=== PATIENT | female | born 1965 ===

== ENCOUNTER 2024-12-13 15:05 | Outpatient (AMB) | payer BC, SELFPAY ==
--- NOTE | 2024-12-13 15:13 | A.OFFPC_ITS ---
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 Accompanied by: Self / Same As Patient Allergies Sulfa (Sulfonamide Antibiotics) Adverse Reaction (Severe, Verified 12/13/24 15:36) vaginal itch Medication List - Last Reconciled 12/13/24 by Sheridan Rachel MD lisinopril 10 mg PO DAILY Tobacco use date assessed: 12/13/24 Dental Screening Dental Screen Date: 12/13/24 Did you have a dental visit in the last 12 months?: Yes Did you have a dental problem in the last 6 months where you did not have access to dental care?: No Was dental information given to patient?: Patient has dentist HPI HPI Comments History of Present Illness Details The patient is a 59-year-old female presenting with multiple chronic conditions and concerns with specific emphasis on difficulty swallowing and a rash. She has struggled with essential hypertension, untreated for four months due to a gap in care continuity. Her history includes cervical cancer treated with hysterectomy, sulfonamide allergy, and thyroid concerns. Dysphagia symptoms have peaked with solid food intake, feeling of esophageal constriction, and recent financial barriers to diagnostic assessment like endoscopy. Shortness of breath, recognized post-COVID infection, remains prominent, with baseline exertional capacity reduced. Additionally, skin manifestations with rash episodes, standardized relief with topical clobetasol, and a known history of depression underscore the complexity of her care needs. The recent lifestyle and psychosocial adjustments have influenced her mental health, with the pursuit of weight management initiatives such as exercise hindered. Discussion related to breast reduction eligibility contingent on weight aims at easing physical discomfort and possibly aiding psy chological distress. [facility] Surgical History (Updated 12/13/24 @ 15:41 by Sheridan Rachel MD) History of tubal ligation History of tonsillectomy History of cholecystectomy History of hysterectomy Family History Mother Emphysema lung Father Esophageal cancer Social History Housing: House Alcohol intake: never Patient Tobacco Use Status: Former Tobacco user Tobacco use type: Cigarette e-Cigarette/Vaping Use: Never Used Second Hand Smoke Exposure: No service: No Current occupational status: unemployed Cognitive needs: No Hearing needs: No Vision needs: Yes Questionnaire PHQ-9 Over the last 2 weeks, how often have you been bothered by any of the following problems? 1. Little interest or pleasure in doing things: not at all 2. Feeling down, depressed, or hopeless: several days 3. Trouble falling or staying asleep, or sleeping too much: several days 4. Feeling tired or having little energy: several days 5. Poor appetite or overeating: several days 6. Feeling bad about yourself - or that you are a failure or have let yourself or your family down: not at all 7. Trouble concentrating on things, such as reading the newspaper or watching television: not at all 8. Moving or speaking so slowly that other people could have noticed. Or the opposite - being so fidgety or restless that you have been moving around a lot more than usual: not at all 9. Thoughts that you would be better off or of hurting yourself in some way: not at all Total score: 4 Depression Screening Interpretation: Positive Depression Screening Follow-up: Existing condition, New Medication prescribed and Follow-up Visit Requested Depression Screening Done: Yes [id number] - PHQ-9 Billing: Yes Source: Developed by Drs. Tristan Gregg, Zohra Mendoza, Felipe Barajas and colleagues, with an educational byron from [employer]. Thrive Questionnaire Date Thrive assessed: 12/10/24 I am a: Patient What is your living situation today?: I have a steady place to live Within the past 12 months, did the food you bought not last and you didn't have the money to get more?: I choose not to answer this question Within the past 12 months, did you worry whether your food would run out before you got money to buy more?: I choose not to answer this question Do you have trouble paying for medicines?: No Do you have trouble getting transportation to medical appointments?: No Do you have trouble paying your heating and electricity bill?: No Do you have trouble taking care of your child, family member or friend?: No Do you have trouble with day-to-day activities such as bathing, preparing meals, shopping, managing finances, etc.?: No Are you currently unemployed and looking for a job?: Yes Are you interested in more education?: No Please select the resources that you would like help with: None Currently or been in a relationship where the following occur: I choose not to answer THRIVE Score: 0 AUDIT C Alcohol Use Questionnaire (AUDIT-C) 1. How often do you have a drink containing alcohol?: Never Total Score: 0 Score Reviewed/Action Taken: No GEMINI-7 AMB Questionnaire GEMINI-7 Date GEMINI - 7 assessed: 12/13/24 Feeling nervous, anxious, or on edge: 1 = Several days Not being able to stop or control worryin = Several days Worrying too much about different things: 1 = Several days Trouble relaxin = Several days Being so restless that it is hard to sit still: 1 = Several days Becoming easily annoyed or irritable: 1 = Several days Feeling afraid as if something awful might happen: 1 = Several days Total GEMINI-7 score (0-4 normal; 5-9 mild; 10-14 moderate; 15-21 severe): 7 Source: Developed by Drs. Tristan Gregg, Zohra Mendoza, Felipe Barajas and colleagues, with an educational byron from [employer]. GEMINI-7 Assessment Billing GEMINI-7 Assessment Tool: GEMINI-7 Assessment 25926 Review of Systems Const All systems reviewed & are unremarkable except as noted in HPI and below ENT Reports dysphagia Card Denies chest pain at rest, Denies chest pain with activity, Denies edema, Denies irregular heart rhythm, Denies claudication, Reports dyspnea, Denies dyspnea on exertion, Denies orthopnea, Denies paroxysmal nocturnal dyspnea and Denies slow heart rate Resp Denies cough, Reports dyspnea and Denies dyspnea on exertion GI Denies abdominal pain, Denies change in bowel habits, Reports dysphagia, Denies excessive flatus, Denies nausea and Denies vomiting Denies urinary incontinence, Denies urinary hesitancy and Denies urinary urgency Musc Reports arthralgias Neuro Denies lack of coordination Physical exam (Primary Care) Vital Signs: Last Vital Signs BP 148/80 H 12/13/24 15:19 BMI result Body Mass Index 31.1 Tobacco/Smoking Status: Tobacco use Status Tobacco use date assessed 12/13/24 12/13/24 15:29 Patient Tobacco Use Status Former Tobacco user 12/13/24 15:29 Tobacco use type Cigarette 12/13/24 15:29 e-Cigarette/Vaping Use Never Used 12/13/24 15:29 PHQ-9: PHQ-9 Score PHQ-9: Total score 4 12/13/24 15:59 Depression Screening Interpretation: Positive Depression Screening Follow-up: Existing condition, New Medication prescribed and Follow-up Visit Requested Thrive Assessment: Date of Thrive Assessment Date Thrive assessed 12/10/24 12/13/24 15:15 Currently or been in a relationship where the following occur: I choose not to answer Resp Effort & Inspection: normal respiratory effort Auscultation: clear to auscultation bilaterally Cardio Jugular venous distension: no JVD Rate: regular rate Rhythm: regular rhythm Heart sounds: S1 normal heart sound present and S2 normal heart sound present Extrem General: Yes full ROM Coding Level of Care Code New Pt Level 4 (21520) Complex EM visit Add On G2211 Diagnoses Eczema L30.9 Polyarthralgia M25.50 Dyspnea R06.00 Left foot pain M79.672 Difficulty swallowing solids R13.10 Essential hypertension I10 Mild recurrent major depression F33.0 Thyroid disease E07.9 Hypertriglyceridemia E78.1 History of cervical cancer Z85.41 Additional Codes GEMINI-7 Assessment Billing - GEMINI-7 Assessment Tool: GEMINI-7 Assessment 22345 ([id number]) PHQ-9 - 73832 - PHQ-9 Billing: Yes ([id number]) Time Spent (min) 28 Assessment & Plan Assessment & Plan (1) Eczema: Code(s): L30.9 - Dermatitis, unspecified Category: Medical (2) Polyarthralgia: Code(s): M25.50 - Pain in unspecified joint Category: Medical (3) Dyspnea: Code(s): R06.00 - Dyspnea, unspecified Category: Medical (4) Left foot pain: Code(s): M79.672 - Pain in left foot Category: Medical (5) Difficulty swallowing solids: Code(s): R13.10 - Dysphagia, unspecified Category: Medical (6) Essential hypertension: Code(s): I10 - Essential (primary) hypertension Category: Medical (7) Mild recurrent major depression: Code(s): F33.0 - Major depressive disorder, recurrent, mild Category: Medical (8) Thyroid disease: Code(s): E07.9 - Disorder of thyroid, unspecified Category: Medical (9) Hypertriglyceridemia: Code(s): E78.1 - Pure hyperglyceridemia Category: Medical (10) History of cervical cancer: Code(s): Z85.41 - Personal history of malignant neoplasm of cervix uteri Category: Medical Plan We aim to manage high blood pressure by re-initiating lisinopril 10mg once daily. For swallowing difficulties, a swallow study is planned to diagnose etiology. Skin rashes will be treated with clobetasol until dermatologic consultation. To address her breathlessness, a comprehensive thoracic examination and pulmonology evaluation will be implemented. Weight loss is encouraged to support her interest in breast reduction surgery. Pending rheumatological assessment for joint pain, she will continue using topical pain relief. I discussed the role of mood stabilization medication to tackle depression, emphasizing future counseling. Follow-up and continuity with preventative screenings aim to optimize wellness. Patient was informed and verbally consented to the use of an ambient scribe for clinic note documentation during this visit. I discussed the importance of restarting her hypertension medication and reviewed options for dysphagia evaluation via a swallow study. Stressing regular dermatological monitoring, I explained how topical treatments could be managed until specialist input. We examined the need for lung function evaluation considering post-COVID symptoms and the psychological aspects potentially influencing her overall well-being. I addressed weight's role in elective breast reduction surgery, identifying steps towards eligibility. I also highlighted potential benefits of rheumatology referral and counseling for depression. Emphasizing vigilant follow-up, I outlined a comprehensive care strategy with patient consent. Orders: Orders Thyroid Stimulating Hormone Today E07.9 - Disorder of thyroid, unspecified Free T4 (Free Thyroxine) Today E07.9 - Disorder of thyroid, unspecified Comprehensive [place]. Panel Fast Today I10 - Essential (primary) hypertension Cyclic Citrullinated Peptide Today M25.50 - Pain in unspecified joint Rheumatoid Factor Today M25.50 - Pain in unspecified joint Anti DNA DS Antibody Today M25.50 - Pain in unspecified joint Vitamin D 25-OH Total Today E55.9 - Vitamin D deficiency, unspecified, M25.50 - Pain in unspecified joint Complete Blood Count Auto Diff Today M25.50 - Pain in unspecified joint XR foot LT 2V Today M79.672 - Pain in left foot Lipid Panel Today E78.5 - Hyperlipidemia, unspecified Thyroglobulin Antibodies Today E07.9 - Disorder of thyroid, unspecified Thyroid Peroxidase Antibodies Today E07.9 - Disorder of thyroid, unspecified FL barium swallow Today R13.10 - Dysphagia, unspecified Erythrocyte Sedimentation Rate Today M25.50 - Pain in unspecified joint C Reactive Protein Today M25.50 - Pain in unspecified joint US thyroid Today E04.9 - Nontoxic goiter, unspecified Referrals Pulmonology Referral R06.00 - Dyspnea, unspecified Open Access Screening Colonoscopy Referral Z12.12 - Encounter for screening for malignant neoplasm of rectum Rheumatology Referral M25.50 - Pain in unspecified joint Dermatology Referral L30.9 - Dermatitis, unspecified DENTAL SERVICE CHIEF Referral Z85.41 - Personal history of malignant neoplasm of cervix uteri Medications: New lisinopril 10 mg PO DAILY 90 tabs 1RF 90 days I10 - Essential (primary) hypertension clobetasol 0.05% 1 appl topical BEDTIME 30 grams 0RF 90 days trazodone 50 mg PO BEDTIME PRN 90 tabs 1RF sleep 90 days F33.0 - Major depressive disorder, recurrent, mild Patient Instructions: - Take lisinopril 10mg daily for hypertension - New swallow study scheduled for swallowing difficulty - Apply prescribed clobetasol cream as needed for rash - Follow-up with scheduled lung specialist - Gradually resume exercise for weight management - Contact the office if symptoms worsen or new symptoms develop
[2024-12-13 15:19] VITALS: BP 148/80; BMI 31.1
== END 2024-12-13 16:03 | disposition home or self-care (01) ==
PROVIDERS: PCP Internal Medicine; Visit Provider Internal Medicine
DX: L30.9 Dermatitis, unspecified (principal); M25.50 Pain in unspecified joint; R06.00 Dyspnea, unspecified; M79.672 Pain in left foot; R13.10 Dysphagia, unspecified; I10 Essential (primary) hypertension; F33.0 Major depressive disorder, recurrent, mild; E07.9 Disorder of thyroid, unspecified; E78.1 Pure hyperglyceridemia; Z85.41 Personal history of malignant neoplasm of cervix uteri

== ENCOUNTER → 2024-12-13 15:05 | Outpatient (BNVA) | payer BC, SELFPAY | PROVIDERS: Visit Provider Internal Medicine | DX: I10 Essential (primary) hypertension (principal); L30.9 Dermatitis, unspecified; M25.50 Pain in unspecified joint; R06.00 Dyspnea, unspecified; M79.672 Pain in left foot; R13.10 Dysphagia, unspecified; F33.0 Major depressive disorder, recurrent, mild; E07.9 Disorder of thyroid, unspecified; E78.1 Pure hyperglyceridemia; Z85.41 Personal history of malignant neoplasm of cervix uteri | CPT/HCPCS: 96127 ==

== ENCOUNTER 2025-01-22 08:04 | Outpatient (REF) | payer BC, SELFPAY ==
[2025-01-22 08:44] LABS: MANUAL DIFF FLAG NO
[2025-01-22 09:09] LABS: Hematocrit 42.7 % (37.0-47.0); Hemoglobin 14.3 g/dl (12.0-16.0); Imm Gran Abs Auto 0.01 X10*3/uL (0.00-0.03); Imm Gran Pct Auto 0.2 % (0.0-0.4); Lymphocytes Absolute Auto 1.8 X10*3/uL (1.2-4.9); Mean Corpuscular HGB Conc 33.5 g/dl (31.0-35.0); Mean Corpuscular Hemoglobin 29.7 pg (27.0-33.0); Mean Corpuscular Volume 88.6 fL (80.0-98.0); NRBC Abs Auto 0.000 X10*3/uL (0.0-0.012); NRBC Pct Auto 0.0 /100WBC (0.0-0.2); Platelet Count 190 X10*3/uL (160-400); Red Blood Count 4.82 X10*6/uL (4.20-5.50); White Blood Count 4.7 X10*3/uL (4.8-10.8)
[2025-01-22 09:53] LABS: Alanine Aminotransferase 29 U/L (0-31); Albumin Level 4.4 g/dL (3.5-5.0); Alkaline Phosphatase 82 U/L (39-117); Anion Gap 11 (12-20); Aspartate Amino Transferase 21 U/L (5-31); Blood Urea Nitrogen 17 mg/dL (9-16); Calcium 9.2 mg/dL (8.4-10.2); Carbon Dioxide 28 mmol/L (22-29); Chloride 106 mmol/L (96-108); Cholesterol 206 mg/dL (<200); Estimated Glomerular Filt Rate > 60; HDL Cholesterol 49 mg/dL (>40); Potassium 3.8 mmol/L (3.3-5.1); Sodium 141 mmol/L (135-145); Total Protein 7.4 g/dL (6.5-8.0); Triglycerides 85 mg/dL (<150)
[2025-01-22 10:13] LABS: Free T4 (Free Thyroxine) 0.97 ng/dL (0.71-1.85); Thyroid Stimulating Hormone 3.01 uIU/mL (0.32-4.0)
[2025-01-25 18:38] LABS: Thyroglobulin Antibodies 127 IU/mL (< or = 1)
== END 2025-01-22 08:05 | disposition home or self-care (01) ==
LOC: HO.LAB 08:04
PROVIDERS: PCP Internal Medicine; Visit Provider Internal Medicine
DX: E78.5 Hyperlipidemia, unspecified (principal); E07.9 Disorder of thyroid, unspecified; I10 Essential (primary) hypertension; E55.9 Vitamin D deficiency, unspecified; M25.50 Pain in unspecified joint
CPT/HCPCS: 36415; 80053; 80061; 82306; 84439; 84443; 85025; 85652; 86140; 86200; 86225; 86376; 86431; 86800

== ENCOUNTER 2025-04-05 09:55 | Outpatient (REF) | payer BC, SELFPAY ==
--- NOTE | ~2025-04-05 | FL_ITS ---
EXAMINATION: XR FLUOROSCOPY BARIUM SWALLOW CLINICAL INFORMATION: Dysphagia, reflux symptoms. COMPARISON: None TECHNIQUE: Fluoroscopic air contrast barium swallow examination was performed utilizing standard techniques with thin and thick barium and effervescent granules. Numerous spot images were obtained. Several fluoroscopic image hold cine sequences were also obtained. FINDINGS: BARIUM SWALLOW: Lateral cine images of the oropharynx and hypopharynx demonstrate normal swallow mechanism with normal epiglottic inversion and soft palate elevation. No laryngeal penetration, glottic or subglottic aspiration identified. No nasopharyngeal reflux present. Hypopharyngeal structures appear normal without evidence of mass or diverticulum. There was no significant cricopharyngeal achalasia. Dual and single contrast images of the esophagus demonstrate normal caliber, contour, and mucosal pattern. No evidence of stricture, mass, or ulcerations identified. Esophageal peristalsis was mildly disordered. Mild smooth narrowing of the GE junction was noted, most likely on the basis of mild achalasia. No high-grade narrowing evident. No evidence of hiatus hernia identified. No significant gastroesophageal reflux was seen during the course of the examination . Dual contrast and single contrast images of the stomach demonstrated normal contour and mucosal pattern without evidence of mass, ulceration, or other abnormality. Normal rugal fold pattern. Contrast freely passed into the gastric antrum and duodenal bulb without delay. FLUOROSCOPY TIME: 2 minutes, 43 seconds Number of Spot Images:9 Number of cines obtained: 8 DOSE AREA PRODUCT: 3180 uGy-m2 (microgray-meter squared) FL/FL barium swallow with air IMPRESSION: 1. Mildly disordered esophageal peristalsis. 2. Mild smooth narrowing of the GE junction, appearance suspicious for a mild degree of achalasia. 3. Remainder of the examination is normal. Electronically signed by: Ayad Figueredo MD 04/05/2025 11:46 AM EDT
== END 2025-04-05 09:56 | disposition home or self-care (01) ==
LOC: HO.XRAY 09:55
PROVIDERS: PCP Internal Medicine; Visit Provider Internal Medicine
DX: R13.10 Dysphagia, unspecified (principal)
CPT/HCPCS: 74221

== ENCOUNTER → 2025-04-05 09:57 | Outpatient (BNV) | payer BC, SELFPAY | PROVIDERS: PCP Internal Medicine; Visit Provider Radiology Diagnostic Radiology | DX: R13.10 Dysphagia, unspecified (principal) | CPT/HCPCS: 74221 ==

== ENCOUNTER 2025-04-23 09:08 | Outpatient (REF) | payer BC, SELFPAY ==
--- NOTE | ~2025-04-23 | XR_ITS ---
EXAMINATION: XR FOOT 3 OR MORE VIEWS LEFT HISTORY: M79.672 - Pain in left foot COMPARISON: There are no prior studies available for comparison. FINDINGS: Three views of the left foot are submitted. Osseous mineralization is normal. There is no fracture or dislocation. The joint spaces are preserved. There is a small plantar calcaneal spur. The soft tissues are unremarkable. XR/XR foot LT min 3V IMPRESSION: Small plantar calcaneal spur. Otherwise unremarkable examination of the left foot. Electronically signed by: Tristan Zamorano MD 04/26/2025 08:05 AM EDT
--- NOTE | ~2025-04-23 | XR_ITS ---
EXAMINATION: XR KNEE 1-2 VIEWS LEFT HISTORY: M25.562 - Pain in left knee COMPARISON: There are no prior studies available for comparison. FINDINGS: AP and lateral views of the left knee are submitted. Osseous mineralization is normal. There is no fracture or dislocation. There is mild narrowing of the medial compartment. The soft tissues are unremarkable. There is no joint effusion. XR/XR knee LT 2V IMPRESSION: Mild narrowing of the medial compartment. Electronically signed by: Tristan Zamorano MD 04/26/2025 08:04 AM EDT
== END 2025-04-23 09:09 | disposition home or self-care (01) ==
LOC: HO.XRAY 09:08
PROVIDERS: PCP Internal Medicine; Visit Provider Internal Medicine
DX: M25.562 Pain in left knee (principal); M79.672 Pain in left foot
CPT/HCPCS: 73560; 73630

== ENCOUNTER → 2025-04-23 09:13 | Outpatient (BNV) | payer BC, SELFPAY | PROVIDERS: PCP Internal Medicine; Visit Provider Radiology Diagnostic Radiology | DX: M17.12 Unilateral primary osteoarthritis, left knee (principal); M77.32 Calcaneal spur, left foot | CPT/HCPCS: 73560; 73630 ==

== ENCOUNTER 2025-06-17 14:59 | Outpatient (AMB) | payer BC, SELFPAY ==
[2025-06-17 15:03] VITALS: BP 140/76; PULSE 66; O2SAT 96; BMI 30.8
--- NOTE | 2025-06-17 15:03 | MHC.OFFVIS ---
Vital Signs 06/17/25 15:03 Height 5 ft 5 in Weight 185 lb 3.013 oz BMI 30.8 BP 140/76 H Blood Pressure Location Lt brachial Position Sitting Pulse 66 Pulse Source Pulse Oximeter Pulse Oximetry (%) 96 Oxygen Delivery Method Room Air Intake Visit Reasons: dyspnea Reference Data Expert Required: Yes Reference Data Expert Services: Reference Data Expert Offered & Declined Reference Data Expert Name: MD speaks setswana Accompanied by: Self / Same As Patient Allergies Sulfa (Sulfonamide Antibiotics) Adverse Reaction (Severe, Verified 06/17/25 15:07) vaginal itch HPI Comments Details: The patient is here for pulmonary evaluation. The patient is a 60 year woman with a family history of pulmonary fibrosis in addition to likely lung cancer. She was a smoker for many years although she quit in 2010 after having a diagnosis of endometrial disease. The patient has had some worsening shortness of breath specially from moving from [place] to [place]. She has had increased coughing. She feels like she has asthma. She has not use any inhalers and lifetime. When she was younger she did undergo pulmonary function studies. But she has not had any since then. She has not had any recent imaging studies. The patient does have eczema in addition to chronic rhinitis. Therefore likely has a diagnosis of atopy. Will go ahead and request blood work including allergy testing. She will undergo pulmonary function studies and a chest x-ray. If her x-ray is abnormal will go ahead and request a CT scan specially with the family history. She may be also the candidate for the lung cancer screening program. The patient will return after undergoing the studies. If she has any issues she can always call. In the meantime I did provide her with a rescue inhaler that she can use as needed. [facility] Medical History (Updated 06/19/25 @ 20:33 by Pepe Garduno MD) Asthma Allergies Chronic allergic rhinitis Surgical History (Updated 12/13/24 @ 15:41 by Sheridan Rachel MD) History of tubal ligation History of tonsillectomy History of cholecystectomy History of hysterectomy Family History Mother Emphysema lung Father Esophageal cancer Social History Housing: House Alcohol intake: never Patient Tobacco Use Status: Former Tobacco user Tobacco use type: Cigarette e-Cigarette/Vaping Use: Never Used Second Hand Smoke Exposure: No service: No Current occupational status: unemployed Cognitive needs: No Hearing needs: No Vision needs: Yes Review of Systems Const All systems reviewed & are unremarkable except as noted in HPI and below ENT Reports dysphagia Card Denies chest pain at rest, Denies chest pain with activity, Denies edema, Denies irregular heart rhythm, Denies claudication, Reports dyspnea, Denies dyspnea on exertion, Denies orthopnea, Denies paroxysmal nocturnal dyspnea and Denies slow heart rate Resp Denies cough, Reports dyspnea and Denies dyspnea on exertion GI Denies abdominal pain, Denies change in bowel habits, Reports dysphagia, Denies excessive flatus, Denies nausea and Denies vomiting Denies urinary incontinence, Denies urinary hesitancy and Denies urinary urgency Musc Reports arthralgias Neuro Denies lack of coordination Physical Exam Vital Signs: Last Vital Signs Pulse 66 06/17/25 15:03 BP 140/76 H 06/17/25 15:03 Pulse Ox 96 06/17/25 15:03 Oxygen Delivery Method Room Air 06/17/25 15:03 BMI result Body Mass Index 30.8 Const General: comfortable HEENT Head: Yes normocephalic Neck Neck: Yes supple Chest Chest palpation & inspection: normal inspection of the chest Resp Effort & Inspection: normal respiratory effort Auscultation: diminished lung sounds Cardio Heart sounds: S1 normal heart sound present and S2 normal heart sound present GI Palpation (GI): Soft to palpation Skin General skin exam: no rashes or lesions noted Extrem General: Yes no clubbing, cyanosis or edema Assessment & Plan Assessment & Plan (1) Dyspnea: Code(s): R06.00 - Dyspnea, unspecified Category: Medical Qualifiers: Dyspnea type: dyspnea on exertion Qualified Code(s): R06.09 - Other forms of dyspnea (2) Allergies: Code(s): T78.40XA - Allergy, unspecified, initial encounter Category: Medical Qualifiers: Encounter type: initial encounter Qualified Code(s): T78.40XA - Allergy, unspecified, initial encounter (3) Eczema: Code(s): L30.9 - Dermatitis, unspecified Category: Medical Qualifiers: Eczema type: flexural Qualified Code(s): L20.82 - Flexural eczema (4) Asthma: Code(s): J45.909 - Unspecified asthma, uncomplicated Category: Medical Qualifiers: Asthma severity: moderate Asthma persistence: persistent Asthma complication type: uncomplicated Qualified Code(s): J45.40 - Moderate persistent asthma, uncomplicated Plan Bloodwork, allergy testing start TOMÁS as needed CXR PFTs F/U 2-3 months Orders: Orders Resp Allergy Profile Region I 06/17/25 J30.9 - Allergic rhinitis, unspecified, R91.1 - Solitary pulmonary nodule, T78.40XA - Allergy, unspecified, initial encounter Immunoglobulin E 06/17/25 J30.9 - Allergic rhinitis, unspecified, T78.40XA - Allergy, unspecified, initial encounter XR chest 2V 06/17/25 J30.9 - Allergic rhinitis, unspecified, T78.40XA - Allergy, unspecified, initial encounter Complete Blood Count Auto Diff 06/17/25 J30.9 - Allergic rhinitis, unspecified, T78.40XA - Allergy, unspecified, initial encounter Basic Metabolic Panel 06/17/25 J30.9 - Allergic rhinitis, unspecified, T78.40XA - Allergy, unspecified, initial encounter Erythrocyte Sedimentation Rate 06/17/25 J30.9 - Allergic rhinitis, unspecified, T78.40XA - Allergy, unspecified, initial encounter SHERIDAN Reflex Titer and Pattern 06/17/25 J30.9 - Allergic rhinitis, unspecified, T78.40XA - Allergy, unspecified, initial encounter PFT pulmonary function test 06/17/25 R06.00 - Dyspnea, unspecified Medications: New albuterol sulfate 90 mcg/actuation 2 inhalations inhalation Q6H PRN 3 ea 3RF shortness of breath or wheezing 90 days J44.9 - Chronic obstructive pulmonary disease, unspecified Coding Level of Care Code New Pt Level 4 (02550) Diagnoses Dyspnea on exertion R06.09 Dyspnea type: dyspnea on exertion Allergy, initial encounter T78.40XA Encounter type: initial encounter Flexural eczema L20.82 Eczema type: flexural Moderate persistent asthma without complication J45.40 Asthma severity: moderate Asthma persistence: persistent Asthma complication type: uncomplicated Time Spent (min) 40
== END 2025-06-17 15:37 | disposition home or self-care (01) ==
LOC: HO.HPS 15:00
PROVIDERS: PCP Internal Medicine; Visit Provider Hospitalist
DX: J45.40 Moderate persistent asthma, uncomplicated (principal)
CPT/HCPCS: 99204

== ENCOUNTER → 2025-06-17 14:59 | Outpatient (BNVA) | payer BC, SELFPAY | PROVIDERS: PCP Internal Medicine; Visit Provider Hospitalist | DX: R06.09 Other forms of dyspnea (principal); L20.82 Flexural eczema; J45.40 Moderate persistent asthma, uncomplicated; T78.40XA Allergy, unspecified, initial encounter; Z87.891 Personal history of nicotine dependence; Z23 Encounter for immunization | CPT/HCPCS: 90471; 90656 ==